=== PATIENT | male | born 1945 | race Hispanic/Latino ===

== ENCOUNTER → 2017-04-09 | Day surgery (SDC) | payer MEDICARE ==
[2017-04-07 08:33] LABS: BASOPHILS % 0.6 % (0.0-1.0); EOSINOPHILS # (AUTO) 0.2 (0.0-0.4); EOSINOPHILS % 3.2 % (0.0-6.0); HEMOGLOBIN 14.1 g/dL (14.0-18.0); LYMPHOCYTES % 30.4 % (18.0-39.1); MEAN CORPUSCULAR HEMOGLOBIN 31.3 pg (28-32); MEAN CORPUSCULAR HGB CONC 32.8 g/dL (31-35); MEAN CORPUSCULAR VOLUME 95.3 fL (81-99); MONOCYTES # (AUTO) 0.6 (0.2-0.8); MONOCYTES % 8.9 % (4.4-11.3); NEUTROPHILS # (AUTO) 3.7 (2.1-6.9); NEUTROPHILS % 56.4 % (38.7-80.0); PLATELET COUNT 222 x10e3/uL (140-360); RED BLOOD COUNT 4.51 x10e6/uL (4.3-5.7); RED CELL DISTRIBUTION WIDTH 12.5 % (11.7-14.4)
[2017-04-07 09:01] LABS: ANION GAP 11.9 mmol/L (8-16); BLOOD UREA NITROGEN 12 mg/dL (7-26); BUN/CREATININE RATIO 11 (6-25); CALCIUM 9.7 mg/dL (8.4-10.2); CARBON DIOXIDE 29 mmol/L (22-29); CHLORIDE 105 mmol/L (98-107); CREATININE, SERUM 1.12 mg/dL (0.72-1.25); EST GLOMERULAR FILTRATION RATE > 60 ML/MIN (60-); GLUCOSE 139 mg/dL (74-118); POTASSIUM 4.9 mmol/L (3.5-5.1); SODIUM 141 mmol/L (136-145)
[~2017-04-09] MED LIST: ATORVASTATIN CA20 MG PO; BUPIVACAINE 0.25%/EPI 30ML SDV INJ ONE; CEFAZOLIN SOD 1 GM VIAL ONE; DEXAMETHASONE SOD PHOS INJ 4 MG/ML VIAL ONE; EPHEDRINE SULFATE INJ 50 MG/10 ML SYR ONE; FENTANYL CITRATE/PF 100MCG/2 ML INJ ONE; GLIPIZIDE10 MG PO; HYDRALAZINE HC100 MG PO; LIDOCAINE HCL 2% LOCAL INJ 5 ML SDV VIAL INJ ONE; LOSARTAN-HCTZ1 EAC1 PO; METFORMIN HCL500 MG PO; METOPROLOL SUC100 MG PO; MIDAZOLAM HCL 2 MG/2 ML VIAL ONE; NEOSTIGMINE 1 MG/ML 10ML VIAL ONE; ONDANSETRON HCL INJ 2 MG/ML VIAL ONE; PROPOFOL IV EMULSION 10 MG/ML 20 ML VIAL ONE; SEVOFLURANE INHAL SOLN 250 ML PEN BTL ONE
--- NOTE | 2017-04-09 12:48 | Operative Report ---
DATE OF PROCEDURE: April 09, 2017 PREOPERATIVE DIAGNOSES 1. Status post incision and drainage of a large epidermal inclusion cyst of the back. 2. Diabetes mellitus. POSTOPERATIVE DIAGNOSES 1. Status post incision and drainage of a large epidermal inclusion cyst of the back. 2. Diabetes mellitus. PROCEDURE PERFORMED: Excision of previously drained epidermal inclusion cyst of the back. ANESTHESIA: General. ESTIMATED BLOOD LOSS: Minimal. DRAINS: None. COMPLICATIONS: None. INDICATIONS AND FINDINGS: The patient is a 71-year-old male admitted for excision of previously drained epidermal inclusion cyst of the back to prevent further recurrence. INTRAOPERATIVE FINDINGS: The patient had a healed scar in the left upper back near the shoulder region. This area was indurated. I know for a fact, since I performed the previous incision and drainage, that there was a cyst lining left behind and that failure to remove the site would have resulted in a recurrence and further infection in this diabetic male. DESCRIPTION OF PROCEDURE: With the patient lying on the operative table in the supine position, after administration of general endotracheal anesthesia, he was placed in the right lateral decubitus position. The left side was up. A transverse incision was made across the longer diameter of the cyst, which was directed laterally, superiorly, medially and inferiorly. Then the incision was then made in an elliptical fashion encompassing all the indurated area down to the fascia but not removing all the fascia. After we did that, we raised flaps using electrocautery to close the wound without any pressure. Then we closed the wound in 2 layers using #0 Vicryl for the deeper layer and 3-0 Vicryl for the more superficial subcutaneous layer. The skin was closed with a series of interrupted 3-0 silk stitches vertical mattress. The wound was infiltrated with 0.25% Marcaine with epinephrine at the end of the case. The patient tolerated the procedure well and was taken to recovery room in stable condition. Job#: [id number]
== END | disposition home or self-care (01) ==
LOC: OR 07:11
PROVIDERS: ATTEND Surgery
DX: L72.0 Epidermal cyst (principal); L90.5 Scar conditions and fibrosis of skin; E11.9 Type 2 diabetes mellitus without complications; Z01.812 Encounter for preprocedural laboratory examination; I10 Essential (primary) hypertension; Z87.891 Personal history of nicotine dependence
CPT/HCPCS: 21932; 36415 ×2; 80048; 82948; 85025; 88304; J0690; J1100; J2001; J2250; J2405; J2710